=== PATIENT | male | born 1965 | race Caucasian/White ===

== ENCOUNTER 2020-01-01 04:24 | Emergency (ER) | payer OTHER ==
[~2020-01-01] VITALS: Ht 175.3 cm; Wt 83.9 kg
[~2020-01-01 04:24] MED LIST: LORA-259; OLAN5TAB3
--- NOTE | 2020-01-01 05:25 | NUR ---
PT BIBSELF C/O SUICIDAL IDEATION. PT ALSO C/O AUDITORY HALLUCINATIONS, PT STATES THE VOICES ARE TELLING HIM HE'S WORTHLESS. NO PLAN NOTED AND DENIES HI AT THIS TIME. PT AAOX4. CALM AND COOPERATIVE. VITAL SIGNS STABLE. RESPIRATIONS EVEN AND UNLABORED. SKIN INTACT. NO ACUTE DISTRESS NOTED AT THIS TIME. PLACED IN GOWN AND BELONGINGS COLLECTED AND PLACED IN PATIENT LOCKER. SITTER AT BEDSIDE, WILL CONTINUE TO MONITOR
[2020-01-01] MEDS ORDERED: LORAZEPAM 1 MG TABLET PO ONE (05:30)
--- NOTE | 2020-01-01 05:40 | NUR ---
RAMP MANAGER AT BEDSIDE FOR COLLECTION
[2020-01-01] MEDS ORDERED: LORAZEPAM 1 MG TABLET ONE (05:51)
[2020-01-01] MEDS ORDERED: QUETIAPINE FUMARATE 25 MG TABLET ONE (05:55)
[2020-01-01] MEDS ORDERED: QUETIAPINE FUMARATE 100 MG TABLET PO SCH (06:00)
[2020-01-01 06:01] LABS: BASOPHILS # (AUTO) 0.1 /CMM (0.0-0.2); BASOPHILS % (AUTO) 0.6 % (0.0-2.0); EOSINOPHILS % (AUTO) 3.8 % (0.0-6.0); HEMATOCRIT 45 % (39-51); HEMOGLOBIN 15.3 g/dL (13.5-17.5); LYMPHOCYTES # (AUTO) 1.9 /CMM (0.8-4.8); LYMPHOCYTES % (AUTO) 20.1 % (20.0-44.0); MEAN CORPUSCULAR HGB CONC 34 g/dl (31.0-36.0); MEAN CORPUSCULAR VOLUME 90 fL (80-96); MONOCYTES # (AUTO) 1.2 /CMM (0.1-1.30); MONOCYTES % (AUTO) 12.7 % (2.0-12.0); NEUTROPHILS % (AUTO) 62.8 % (43.0-81.0); PLATELET COUNT (AUTO) 284 /CMM (150-450); RED BLOOD CELL COUNT(AUTO) 5.01 MIL/uL (4.5-6.0); WHITE BLOOD COUNT (AUTO) 9.5 K/uL (4.3-11.0)
[2020-01-01 06:24] LABS: CALCIUM, SERUM 9.4 mg/dL (8.5-10.1); CARBON DIOXIDE 25 mmol/L (21-32); CHLORIDE 98 mmol/L (98-107); CREATININE 1.1 mg/dL (0.6-1.3); GLUCOSE 107 mg/dL (74-106); SODIUM SERUM 133 mmol/L (136-145); UREA NITROGEN, BLOOD 13 mg/dL (7-18)
[2020-01-01 06:30] LABS: ALANINE AMINOTRANSFERASE 27 U/L (12-78); ALBUMIN 4.2 g/dL (3.4-5.0); ALCOHOL, BLOOD < 3 mg/dL (0-0); ALKALINE PHOSPHATASE 77 U/L (46-116); ASPARTATE AMINOTRANSFERASE 26 U/L (15-37); BILIRUBIN,DIRECT 0.2 mg/dL (0.0-0.2); BILIRUBIN,TOTAL 0.9 mg/dL (0.2-1.0); TOTAL PROTEIN, SERUM 8.2 g/dL (6.4-8.2)
[2020-01-01 06:31] LABS: ACETAMINOPHEN < 2 ug/ml (10-30)
--- NOTE | 2020-01-01 06:58 | NUR ---
URINE COLLECTED, CALLED LAB FOR NURSE DISCHARGE
[2020-01-01] MEDS ORDERED: LIDOCAINE 2% JEL UROJET 10 ML MM ONE (06:59)
--- NOTE | 2020-01-01 08:00 | NUR ---
PATIENT RESTING, NO DISTRESS NOTED. NEEDS ATTENDED.
[2020-01-01 08:41] LABS: APPEARANCE,URINE CLEAR (CLEAR); BILIRUBIN,URINE NEGATIVE (NEGATIVE); BLOOD, URINE TRACE-INTA Ery/uL (NEGATIVE); COLOR,URINE YELLOW (YELLOW); KETONES,URINE NEGATIVE (NEGATIVE); LEUKOCYTE ESTERASE ,URINE NEGATIVE (NEGATIVE); NITRITE, URINE NEGATIVE (NEGATIVE); PROTEIN,URINE NEGATIVE (NEGATIVE); UGLUCOSE NEGATIVE (NEGATIVE); UROBILINOGEN,URINE 0.2 EU/dL (0.2)
--- NOTE | 2020-01-01 08:46 | NUR ---
ORDERED BREAKFAST FOOD TRAY.
[2020-01-01 09:38] LABS: BACTERIA,URINE None seen /HPF (None Seen); RBC,URINE 0-2 /HPF (0-2); SQUAMOUS EPITHELIAL CELL,UR Rare /HPF (None Seen); WBC,URINE 0-2 /HPF (0-3)
--- NOTE | 2020-01-01 10:07 | NUR ---
KING AT BEDSIDE FOR EVAL.
--- NOTE | 2020-01-01 12:34 | NUR ---
This SW faxed clinicals to [facility] Intake . Pending COVID results.
--- NOTE | 2020-01-01 12:52 | NUR ---
COVID SWAB SENT TO LAB.
--- NOTE | 2020-01-01 13:45 | NUR ---
MEDICAL CLEARANCE NOTE FAXED TO [facility]
--- NOTE | 2020-01-01 15:55 | NUR ---
Dr. Manning, [phone] ext [phone]. Ramila (intake)
--- NOTE | 2020-01-01 16:03 | NUR ---
REPORT GIVEN TO LAQUITA QUINTANILLA FOR ELVIS.
--- NOTE | 2020-01-01 16:51 | NUR ---
CALLED [facility] FOR TRANSPORT TO [facility]. ETA [phone].
[2020-01-01] MEDS ORDERED: ALPR2TAB7 PO (18:26)
[2020-01-01] MEDS ORDERED: HYDR4TAB57 PO (18:26)
[2020-01-01] MEDS ORDERED: GABA-532 PO (18:26)
[2020-01-01] MEDS ORDERED: QUET100T PO (18:26)
[2020-01-01] MEDS ORDERED: HYDROMORPHONE HCL 2 MG TABLET ONE (18:56)
[2020-01-01] MEDS ORDERED: GABAPENTIN 300 MG CAPSULE ONE (18:56)
[2020-01-01] MEDS ORDERED: HYDROMORPHONE HCL 2 MG TABLET PO PRN (19:00)
[2020-01-01] MEDS ORDERED: GABAPENTIN 100 MG CAPSULE PO ONE (19:00)
--- NOTE | 2020-01-01 19:01 | NUR ---
PATIENT GIVEN HIS "SCHEDULED" MEDICATIONS. DILAUDID AND GABAPENTIN. ORDERED FOOD TRAY.
--- NOTE | 2020-01-01 20:18 | NUR ---
[facility] AT BEDSIDE FOR Transport TO [facility].
[2020-01-01 20:19] VITALS: BP 124/81
== END 2020-01-01 20:19 ==
LOC: ER 04:24
DX: R45.851 Suicidal ideations (principal); F31.9 Bipolar disorder, unspecified; G89.29 Other chronic pain; Z91.14 Patient's other noncompliance with medication regimen; F41.9 Anxiety disorder, unspecified; Z88.5 Allergy status to narcotic agent; Z88.0 Allergy status to penicillin; F12.90 Cannabis use, unspecified, uncomplicated; F15.10 Other stimulant abuse, uncomplicated; Z20.828 Contact with and (suspected) exposure to other viral communicable diseases
CPT/HCPCS: 36415; 80048; 80076; 80299; 80307 ×2; 80320; 81001; 85025; 87426; 99285; C9803; J3490; 81000-TC; G0480

== ENCOUNTER 2020-01-15 23:14 | Emergency (ER) | payer MEDICAID, OTHER ==
[~2020-01-15] VITALS: Ht 170.2 cm; Wt 81.6 kg
[~2020-01-15 23:14] MED LIST changes: +ALPR2TAB7 PO; +GABA-532 PO; +HYDR4TAB57 PO; -LORA-259; -OLAN5TAB3; +QUET100T PO
[2020-01-15] MEDS ORDERED: LORAZEPAM 1 MG TABLET ONE (23:28)
[2020-01-15] MEDS ORDERED: OLANZAPINE 10 MG VIAL IM ONE (23:29)
--- NOTE | 2020-01-15 23:30 | NUR ---
PT CAME TO THE ER C/O AUDITORY HALLUCINATIONS TELLING HIM TO "BE CAREFUL". PT DENIES SI/HI. PT AAOX4, VSS, RESPIRATIONS EVEN AND UNLABORED ON RA W/ NAD NOTED. PT CONNECTED TO THE MONITOR AND POX. PT CHANGED INTO GOWN, BELONGINGS PLACED TO MONITOR.SITTER AT BEDSIDE FOR SAFETY
[2020-01-15] MEDS: LORAZEPAM 1 MG TABLET PO ONE (23:35)
[2020-01-15] MEDS: OLANZAPINE 10 MG VIAL IM ONE (23:35)
--- NOTE | 2020-01-15 23:36 | NUR ---
RN CHEMICAL DEPENDENCY AT BEDSIDE FOR BLOOD DRAW
[2020-01-15 23:46] LABS: BASOPHILS # (AUTO) 0.1 /CMM (0.0-0.2); BASOPHILS % (AUTO) 0.7 % (0.0-2.0); EOSINOPHILS % (AUTO) 2.7 % (0.0-6.0); HEMATOCRIT 47 % (39-51); HEMOGLOBIN 15.5 g/dL (13.5-17.5); MEAN CORPUSCULAR HGB CONC 33 g/dl (31.0-36.0); MEAN CORPUSCULAR VOLUME 91 fL (80-96); MONOCYTES # (AUTO) 0.9 /CMM (0.1-1.30); MONOCYTES % (AUTO) 10.5 % (2.0-12.0); NEUTROPHILS # (AUTO) 5.8 /CMM (1.8-8.9); NEUTROPHILS % (AUTO) 64.1 % (43.0-81.0); PLATELET COUNT (AUTO) 292 /CMM (150-450); RED BLOOD CELL COUNT(AUTO) 5.13 MIL/uL (4.5-6.0)
[2020-01-15 23:53] LABS: CALCIUM, SERUM 9.5 mg/dL (8.5-10.1); CARBON DIOXIDE 28 mmol/L (21-32); CHLORIDE 101 mmol/L (98-107); CREATININE 1.2 mg/dL (0.6-1.3); GLUCOSE 106 mg/dL (74-106); POTASSIUM 3.6 mmol/L (3.5-5.1); SODIUM SERUM 137 mmol/L (136-145); UREA NITROGEN, BLOOD 14 mg/dL (7-18)
[2020-01-15 23:59] LABS: ALANINE AMINOTRANSFERASE 29 U/L (12-78); ALBUMIN 4.2 g/dL (3.4-5.0); ALCOHOL, BLOOD < 3 mg/dL (0-0); ALKALINE PHOSPHATASE 79 U/L (46-116); ASPARTATE AMINOTRANSFERASE 30 U/L (15-37); BILIRUBIN,DIRECT 0.2 mg/dL (0.0-0.2); BILIRUBIN,TOTAL 0.6 mg/dL (0.2-1.0); TOTAL PROTEIN, SERUM 8.2 g/dL (6.4-8.2)
[2020-01-16] LABS: ACETAMINOPHEN < 10 ug/ml (10-30)
--- NOTE | 2020-01-16 00:54 | NUR ---
Patient is resting comfortably in bed with eyes closed. Easily aroused. VSS
--- NOTE | 2020-01-16 01:47 | NUR ---
PATIENT CURRENTLY URINATING IN URINAL. URINE COLLECTED AND SENT TO THE LAB.
[2020-01-16 02:10] LABS: BILIRUBIN,URINE NEGATIVE (NEGATIVE); BLOOD, URINE NEGATIVE Ery/uL (NEGATIVE); COLOR,URINE YELLOW (YELLOW); LEUKOCYTE ESTERASE ,URINE NEGATIVE (NEGATIVE); NITRITE, URINE NEGATIVE (NEGATIVE); PROTEIN,URINE NEGATIVE (NEGATIVE); UGLUCOSE NEGATIVE (NEGATIVE); UROBILINOGEN,URINE 0.2 EU/dL (0.2)
--- NOTE | 2020-01-16 02:34 | NUR ---
PT RESTING COMFORTABLY IN BED. NO ACUTE DISTRESS NOTED. VSS
[2020-01-16 05:33] VITALS: BP 132/79
== END 2020-01-16 05:34 | disposition home or self-care (01) ==
LOC: ER 23:17
DX: F29 Unspecified psychosis not due to a substance or known physiological condition (principal); F19.10 Other psychoactive substance abuse, uncomplicated; F20.9 Schizophrenia, unspecified; F41.9 Anxiety disorder, unspecified; F31.9 Bipolar disorder, unspecified; Z88.0 Allergy status to penicillin; Z88.5 Allergy status to narcotic agent; Z79.899 Other long term (current) drug therapy
CPT/HCPCS: 36415; 80048; 80076; 80299; 80307; 80320; 81001; 85025; 96372; 99284; J3490; 81000-TC; G0480

== ENCOUNTER 2020-01-31 02:39 | Emergency (ER) | payer MEDICAID ==
[~2020-01-31] VITALS: Ht 172.7 cm; Wt 81.6 kg
--- NOTE | 2020-01-31 02:48 | NUR ---
PT AAOX4. BIBRA 860 FROM [facility] FOR C/O BED BUGS IN HIS BED. PT APPEARS TO BE VERY ANXIOUS. VSS. NO ACUTE DISTRESS NOTED.
[2020-01-31] MEDS ORDERED: diphenhydrAMINE HCL 50 MG CAPSULE ONE (03:27)
[2020-01-31] MEDS: diphenhydrAMINE HCL 50 MG CAPSULE PO ONE (03:32)
[2020-01-31 06:17] VITALS: BP 122/76
--- NOTE | 2020-01-31 06:17 | NUR ---
Patient discharged to home in stable condition. Written and verbal after care instructions given. Patient verbalizes understanding of instruction and rx. Pt ambulated with steady gait. vss.
== END 2020-01-31 06:18 | disposition home or self-care (01) ==
LOC: ER 02:40
DX: T14.8XXA Other injury of unspecified body region, initial encounter (principal); Z88.0 Allergy status to penicillin; Z88.5 Allergy status to narcotic agent; Z79.899 Other long term (current) drug therapy; W57.XXXA Bitten or stung by nonvenomous insect and other nonvenomous arthropods, initial encounter; Y93.89 Activity, other specified; Y92.89 Other specified places as the place of occurrence of the external cause; Y99.8 Other external cause status
CPT/HCPCS: 99283; Q0163

== ENCOUNTER 2020-02-08 00:34 | Inpatient (IN) | payer MEDICAID ==
[~2020-02-08] VITALS: Ht 175.3 cm; Wt 74.8 kg
--- NOTE | 2020-02-08 00:40 | NUR ---
PT AAOX4. BIB EMS C/O SI SMOKED SPEED @ 2000 AND TOOK 8 PILLS OF SUBUTEX 45MIN ACADEMIC AFFAIRS SPECIALIST. PT PLACED IN BED 14 ON DEVELOPMENT SCIENTIST AND PULSE OX. PT NOTED TACHY AT 124, RR EVEN AND UNLABORED, BP STABLE. PT PLACED IN A GOWN, BELONINGS PLACED IN LOCKER, SITTER AT BEDSIDE. AWAITING MD FOR EVAL AND ORDERS. WILL CONTINUE TO MONITOR.
--- NOTE | 2020-02-08 00:45 | NUR ---
AT BEDSIDE FOR EVAL. LINE ESTABLISHED LH 20G, BLOOD DRAWN, SENT TO LAB.
--- NOTE | 2020-02-08 00:52 | NUR ---
SPOKE WITH MARCIA FROM POISON CONTROL. RECOMMENDATIONS: 50G CHARCOAL IF PT IS AWAKE AND ABLE TO TOLERATE NARCAN 2MG FOR RESP DEPRESSION BENZO FOR AGITATION, TWITCHING, SEIZURES MONITOR FOR: SEIZURE, HYPOTENSION, BRADYCARDIA, PROLONG QT OBSERVE PATIENT FOR [address] VILLARREAL MADE AWARE
--- NOTE | 2020-02-08 00:53 | NUR ---
SEIZURE PRECAUTIONS INITIATED
[2020-02-08] MEDS ORDERED: ONDANSETRON HCL/PF 4 MG/2 ML VIAL ONE (00:59)
[2020-02-08] MEDS ORDERED: LIDOCAINE 2% JEL UROJET 10 ML MM ONE ×4 (00:59→06:30)
[2020-02-08] MEDS ORDERED: ONDANSETRON HCL/PF 4 MG/2 ML VIAL IV ONE (01:00)
[2020-02-08 01:01] LABS: BASOPHILS # (AUTO) 0.1 /CMM (0.0-0.2); BASOPHILS % (AUTO) 0.4 % (0.0-2.0); EOSINOPHILS % (AUTO) 0.6 % (0.0-6.0); HEMATOCRIT 44 % (39-51); HEMOGLOBIN 14.6 g/dL (13.5-17.5); LYMPHOCYTES # (AUTO) 1.7 /CMM (0.8-4.8); LYMPHOCYTES % (AUTO) 12.6 % (20.0-44.0); MEAN CORPUSCULAR HGB CONC 33 g/dl (31.0-36.0); MEAN CORPUSCULAR VOLUME 92 fL (80-96); MONOCYTES # (AUTO) 0.8 /CMM (0.1-1.30); MONOCYTES % (AUTO) 5.9 % (2.0-12.0); NEUTROPHILS # (AUTO) 10.9 /CMM (1.8-8.9); NEUTROPHILS % (AUTO) 80.5 % (43.0-81.0); PLATELET COUNT (AUTO) 323 /CMM (150-450); WHITE BLOOD COUNT (AUTO) 13.6 K/uL (4.3-11.0)
[2020-02-08 01:11] LABS: CALCIUM, SERUM 9.7 mg/dL (8.5-10.1); CARBON DIOXIDE 26 mmol/L (21-32); CHLORIDE 102 mmol/L (98-107); CREATININE 1.6 mg/dL (0.6-1.3); GLUCOSE 112 mg/dL (74-106); POTASSIUM 3.4 mmol/L (3.5-5.1); SODIUM SERUM 140 mmol/L (136-145); UREA NITROGEN, BLOOD 17 mg/dL (7-18)
--- NOTE | 2020-02-08 01:16 | NUR ---
PT REQUESTING CARMEN GARCIA MD AWARE.
--- NOTE | 2020-02-08 01:16 | NUR ---
AWAITING LAB FOR COVID SWAB.
--- NOTE | 2020-02-08 01:25 | NUR ---
LEANAID SWABBED, SENT TO LAB.
[2020-02-08 01:27] LABS: ALANINE AMINOTRANSFERASE 20 U/L (12-78); ALBUMIN 4.5 g/dL (3.4-5.0); ALCOHOL, BLOOD < 3 mg/dL (0-0); ALKALINE PHOSPHATASE 73 U/L (46-116); ASPARTATE AMINOTRANSFERASE 26 U/L (15-37); BILIRUBIN,DIRECT 0.1 mg/dL (0.0-0.2); BILIRUBIN,TOTAL 0.3 mg/dL (0.2-1.0); TOTAL PROTEIN, SERUM 8.5 g/dL (6.4-8.2)
[2020-02-08 01:28] LABS: ACETAMINOPHEN < 10 ug/ml (10-30)
[2020-02-08] MEDS ORDERED: IV NS 0.9% 1,000 ML BAG IV ONE (01:30)
--- NOTE | 2020-02-08 01:31 | NUR ---
URINE COLLECTED, SENT TO LAB.
[2020-02-08 01:34] LABS: BILIRUBIN,URINE SMALL (NEGATIVE); BLOOD, URINE Negative Ery/uL (NEGATIVE); COLOR,URINE YELLOW (YELLOW); LEUKOCYTE ESTERASE ,URINE Negative (NEGATIVE); NITRITE, URINE Negative (NEGATIVE); PROTEIN,URINE 30 mg/dl (NEGATIVE); UGLUCOSE Negative (NEGATIVE); UROBILINOGEN,URINE 0.2 EU/dL (0.2)
[2020-02-08 01:45] LABS: RBC,URINE 0-2 /HPF (0-2); WBC,URINE 0-2 /HPF (0-3)
--- NOTE | 2020-02-08 01:45 | NUR ---
ER SPOKE TO [facility] REGARDING PT ADMISSION.
[2020-02-08 01:46] LABS: BACTERIA,URINE None seen /HPF (None Seen); MUCUS,URINE Few /LPF (None Seen); SQUAMOUS EPITHELIAL CELL,UR Few /HPF (None Seen); URINE AMORPHOUS URATE Few /HPF (None Seen)
[2020-02-08] MEDS ORDERED: ACETAMINOPHEN 650 MG/SUPP.RECT RC PRN (02:00)
[2020-02-08] MEDS ORDERED: HYDROCODONE/APAP 5/325MG TABLET PO PRN (02:00)
[2020-02-08] MEDS ORDERED: IV NS 0.9% 1,000 ML IV PRN (02:00)
[2020-02-08] MEDS ORDERED: Z GUARD REMEDY 2 OZ OINT TP PRN (02:00)
[2020-02-08] MEDS ORDERED: ZOLPIDEM TARTRATE 5 MG TABLET PO PRN (02:00)
[2020-02-08] MEDS ORDERED: ONDANSETRON HCL/PF 4 MG/2 ML VIAL IVP PRN (02:00)
--- NOTE | 2020-02-08 02:05 | NUR ---
REC'D NEG COVID RESULTS. AWARE. CALLED NURSING SUP FOR BED
--- NOTE | 2020-02-08 02:17 | NUR ---
BIRD BED: 116-1
--- NOTE | 2020-02-08 02:22 | NUR ---
CALLED FOR REPORT, NURSE WILL CALL BACK.
--- NOTE | 2020-02-08 02:29 | NUR ---
REPORT GIVEN TO VARUN QUINTANILLA FOR ELVIS
--- NOTE | 2020-02-08 02:59 | NUR ---
PT TRANSFERED PER ACLS PROTOCOL. VSS.
--- NOTE | 2020-02-08 03:00 | NUR ---
RN NOTE RECEIVED PT FROM ER ACCOMPANIED BY EMT AND MANAGER DEVELOPMENTAL. PT ABLE TO WALK FROM GURNEY TO BED WITH STANDBY ASSIST. PT ON ROOM AIR, DENIES PAIN OR DISCOMFORT, ALERT AND ORIENTED X 4. IV ON LEFT HAND 20G IV FLUSHED AND PATENT. PLACED PT ON TAXATION ACCOUNTANT SHOWING SINUS TACHYCARDIA. PT REFUSED TO HAVE FULL SKIN ASSESSMENT BUT STATES THAT HE DOES NOT HAVE ANY WOUNDS OR SKIN CONDITIONS. VITAL SIGNS TAKEN. PT STATES WANTING TO KILL HIMSELF BUT DOES NOT HAVE A PLAN AT THIS TIME. SAFETY MEASURES IN PLACE, SEIZURE PRECAUTIONS IN AFFECT, WILL MONITOR PATIENT CLOSELY FOR SAFETY. PATIENT RELATIONS MANAGERDWIGHT VELASQUEZ.
--- NOTE | 2020-02-08 03:10 | NUR ---
RN NOTE MATERIAL WORKER VARSHA WITH ORDER FOR 1:1 SITTER. NOTIFIED BY NOTE TELLER THAT SITTER IS NOT AVAILABLE AT THIS TIME. CONTINUING EDUCATION DIRECTOR GINGER VELASQUEZ.
--- NOTE | 2020-02-08 03:49 | NUR ---
RN NOTE VARSHA SHOP STEWARD WITH ORDER TO ADMINISTER ATIVAN 1MG IV X 1 AND FOR PSYCH CONSULT IN AM, ORDER NOTED AND CARRIED OUT.
--- NOTE | 2020-02-08 03:54 | NUR ---
RN NOTE PT REFUSING FLU VACCINE. EXPLAINED RISKS VS ADVANTAGES BUT CONTINUES TO REFUSE.
[2020-02-08 04:00] VITALS: BP 151/98
[2020-02-08] MEDS ORDERED: LORAZEPAM INJ 2 MG/ML VIAL IV PRN (04:00)
--- NOTE | 2020-02-08 05:45 | NUR ---
0597 PATIENT COMPLAIN OF NOT BEING ABLE TO URINATE. ASSISTED TO BATHROOM BUT STILL UNABLE TO VOID. C/O FEELING FULL IN HIS BLADDER. BLADDER SCAN DONE AND NOTED 991ML OF URINE. INVESTIGATIVE SHOPPER KE MADE AWARE WITH ORDER TO INSERT MORALES CATHETER FOR URINARY RETENTION, CLAMP MORALES IF URINE 500ML, THEN UNCLAMP AFTER 15 MINUTES. ORDER NOTED AND CARRIED OUT.
--- NOTE | 2020-02-08 06:20 | NUR ---
RN NOTE PT REMOVED PADDED SIDE RAILS STATING THAT IT IS MAKING HIM FEEL CLAUSTROPHOBIC. REFUSED TO HAVE SIDE RAILS REPADDED DESPITE EXPLANATION OF RISKS AND BENEFITS.
--- NOTE | 2020-02-08 07:25 | NUR ---
RN NOTE PT IS AWAKE AND ALERT/ORIENTED X 4. PT IN BED ON ROOM AIR, 1;1 SITTER AT BEDSIDE AT THIS TIME, WITH MILD AGITATION AND ANXIETY, IV ON LEFT ARM WITH NS @120ML/HOUR RUNNING ORDERED, IV SITE PATENT AND WITHOUT COMPLICATIONS NOTED AT SITE, SR/ST ON THE PAPERBOARD BOXES ESTIMATOR. REFUSED TO HAVE PADDED SIDE RAILS, CALL LIGHT WITHIN REACH, SAFETY MEASURES IN PLACE, BED ALARM ON, BED LOCKED AND IN LOWEST POSITION, SIDE RAILS UP X 3, PENDING PSYCH EVALUATION. GPS NOTIFIED. ENDORSED TO MORNING RN FOR ELVIS.
--- NOTE | 2020-02-08 07:30 | NUR ---
RN OPENING NOTE PT IS AWAKE LYING IN BED A/Ox4. PT ON ROOM AIR SPO2 97%. PT HAS A 1;1 SITTER AT BEDSIDE CURRENTLY. PT IS DISPLAYING AGITATION AND ANXIETY AT THE MOMENT, WILL CONTACT PROVIDER FOR MEDICATION ORDER. LT ARM IV RUNNING NS @120 ML/HR, PATENT AND INFUSING WELL. PT TELEMONITOR SHOWING SR/ST.PT SAFETY PRECAUTIONS IN PLACE- BED LOCKED AND IN LOWEST POSITION, SR UP x3, CALL LIGHT WITHIN REACH. WILL CONTINUE TO MONITOR.
[2020-02-08 08:00] VITALS: BP 136/88
[2020-02-08] MEDS ORDERED: LORAZEPAM INJ 2 MG/ML VIAL IV ONE (08:30)
--- NOTE | 2020-02-08 09:05 | NUR ---
RN NOTES SPOKE WITH DR. OCAMPO, PER HIM TO CALL CRISIS TEAM FOR EVALUATION.
[2020-02-08] MEDS ORDERED: POTASSIUM CHLORIDE 10 MEQ TABLET.SA PO ONE (11:00)
[2020-02-08] MEDS ORDERED: MAG HYDROX/AL HYDROX/SIMETH 30 ML UDC PO PRN (11:30)
[2020-02-08 12:00] VITALS: BP 119/80
--- NOTE | 2020-02-08 12:18 | NUR ---
RN NOTES CRISIS TEAM AT BEDSIDE, SPOKE WITH PSYCH DOCTOR DR. CLEMONS, AGREED WITH PSYCHIATRIC HOSPITALIZATION ONCE MEDICALLY CLEARED DIVYA JACKSON [employer] RN ALREADY NOTIFIED AND WILL PUT IN HER NOTES. PER HER, PT IS MEDICALLY CLEARED
--- NOTE | 2020-02-08 13:59 | NUR ---
ALMA notified by BIRDShannan Layne RN that the pt. is medically cleared for psychiatric treatment and D/C note is ready. Per Admin Dir, Shayne (see note) the pt. is agreeable to voluntary psychiatric treatment. ALMA followed up and ALMA called Jania at [facility] TEL: [phone] and informed her regarding referral to [facility]. Jania request clinicals. ALMA faxed clinicals to ATTN: Jania at [facility] TEL: [phone] FAX:[phone] for referral to [facility] [[address] [address]; [phone]]. Jania to inform ALMA if pt. si admitted. ALMA will be available as needed.
[2020-02-08] MEDS ORDERED: PANTOPRAZOLE 40 MG TABLET.DR PO ONE (14:30)
--- NOTE | 2020-02-08 14:40 | NUR ---
ALMA was called by Jania from [facility] that the pt. has insurance from [facility]. Jania to keep ALMA updated. ALMA faxed clinicals to [facility] [[address] [place] [address]; ] intake TEL: [phone] FAX: [phone] and text Gera to inform him of referral. ALMA will follow up as needed.
[2020-02-08 16:00] VITALS: BP 141/94
--- NOTE | 2020-02-08 16:09 | NUR ---
This SW followed up with Gera at [facility], , to follow-up on status of patient's referral. Gera informed this SW that patient has been admitted to [facility] [[address] [place] [address]]. Admitting psychiatrist at [facility] will be Dr. Burns; patient will be admitted to Room 215, bed B. Gera stated that [facility] nurse can contact [phone] and provide report to nursing supervisor roving. SW spoke with nurse Gonzalo, x [phone], and informed him of discharge plan and location. Gonzalo to call [phone] to provide nurse to nurse report, after which Gonzalo will arrange for ambulance to transfer patient. PLAN: Patient to be transferred to [facility] [[address] [place] [address]] by ambulance.
--- NOTE | 2020-02-08 16:56 | NUR ---
Crystalizer Tender provided patient with the homeless resource packet, which includes the following resources: a list of year round shelters [place] [facility] [place] [address], ; [facility] [place] [address] [facility] [facility], ; and [place] [facility] [address] [facility] [address] [facility], [phone], along with resources for places to go for food, showers, substance abuse treatment, mental health services, community medical clinics, and pharmacies. These include the following: the [facility] homeless directory which provides a list of places that individuals can go to throughout the week for hot meals, sack lunches, food pantries, and showers; a list of mental health clinics: [facility] [address] [place] [address], ; [facility] [address] [place] [address], ; [facility] [address] [place] [address], ; a list of medical clinics: [facility] [address], [place]. [place], ; [facility] [address] [facility], [facility] [address] [place] [address]; [facility] [address] [place] [address], ; and a list of substance abuse programs: [facility] Substance Abuse Self-helpline ; [facility] ; [facility] ; [facility] ; [facility] ; [facility] [phone]; [facility] [phone]; locations of pharmacies. Patient signed the homeless patient waiver, which was then filed in patient's chart.
--- NOTE | 2020-02-08 17:07 | NUR ---
RN NOTE PT TO BE DISCHARGED AND TRANSFERRED VIA AMBULANCE TO [facility] AT 2030. REPORT GIVEN TO DWIGHT BRITO AT FACILITY FOR CONTINUITY OF CARE. PROVIDED DISCHARGE INSTRUCTIONS, HEALTH TEACHINGS AND MED RECON LIST. TO BE FOLLOWED UP BY PCP AND PSYCH DR PER FACILITY PROTOCOL. WILL ENDORSE CARE TO ASSISTANT PASTRY CHEF NURSE TO REMOVE MORALES CATH AND IV ACCESS. ALL BELONGINGS CHECKED AND RETURNED. ALL PAPER WORKS PREPARED AND SIGNED BY PATIENT.
--- NOTE | 2020-02-08 19:35 | NUR ---
RN OPENING NOTES RECEIVED PT IN BED. AWAITING DISCHARGE. PT IS A/O X 4. NO S/S OF RESP DISTRESS OR SOB NOTED AT THIS TIME. NO DIFFICULTY BREATHING. PT DENIES ANY SUICIDAL IDEATIONS, VERBALIZES NO HARM TO SELF OR OTHERS. PT VERBALIZES FEELING SAFE AT THIS FACILITY. PT DOES VERBALIZE HEARING VOICES, DENIES VOICES TELLING HIM TO HARM SELF OR OTHERS. IV REMOVED PRIOR TO MY SHIFT. NO S/S OF INFILTRATION NOTED. PT HAS UNSTEADY GAIT. PT IS AWARE OF TRANSFER TO [facility] FOR CONTINUATION OF CARE. COMPLIANT. BED IS LOCKED IN LOWEST POSITION WITH BED ALARM ON. CALL LIGHT WITHIN REACH. WILL CONTINUE TO MONITOR.
--- NOTE | 2020-02-08 19:36 | NUR ---
RN CLOSING NOTE PT IN STABLE CONDITION. NSR 90s, YASMEEN IV TAKEN OUT, NO BLEEDING. MORALES CATH TAKEN OUT WITH NO PROBLEMS. PT TO BE TRANSFERRED TO [facility] AT 2030. PT SAFETY PRECAUTIONS IN PLACE- BED LOCKED AND IN LOWEST POSITION, SR UPx3, BED ALARM ON, CALL LIGHT WITHIN REACH. WILL ENDORSE ELVIS TO ONCOMING NURSE.
[2020-02-08 20:00] VITALS: BP 126/80
--- NOTE | 2020-02-08 20:05 | NUR ---
PT COMPLAINS OF ANXIETY, REQUESTS ATIVAN. INFORMED FULLER BRUSH WORKER MD. RECEIVED ORDER FOR PO ATIVAN 1MG.
[2020-02-08] MEDS ORDERED: LORAZEPAM 1 MG TABLET ONE (20:14)
--- NOTE | 2020-02-08 20:16 | NUR ---
ATIVAN TABLET DROPPED AND BROKEN. NOTIFIED CHARGE AND PHARMACY. MED WASTED WITH CHARGE. ORDER FOR REPLACEMENT OF ATIVAN TABLET MADE AND ADMINISTERED.
[2020-02-08] MEDS ORDERED: LORAZEPAM 1 MG TABLET PO ONE ×2 (20:30)
--- NOTE | 2020-02-08 20:30 | NUR ---
PT DISCHARGED. REPORT GIVEN TO MARY, FROM AM [facility]. UPON ARRIVAL EMT ASKED FOR PT BY NAME, TO TRANSFER TO [facility] ARRANGED. ID BAND REMOVED. NO IV PRESENT. NO F/C PRESENT. PT HANDED OFF IN STABLE CONDITION. BELONGINGS SENT WITH PATIENT ON GURSULLIVAN WITH 3 EMT ESCORTS. LAST VITAL SIGNS WNL TO PT BASELINE, FOLLOWS T 98.9 HR 93 RR 18O2 SAT 96% BP 126/80.
== END 2020-02-08 21:43 | DRG 817 ==
LOC: ER 00:37 → TELE-TD 02:19 → MEDSG1 12:31
PROVIDERS: ADMIT Nurse Practitioner Acute Care; ATTEND Nurse Practitioner Acute Care
DX: T40.5X2A Poisoning by cocaine, intentional self-harm, initial encounter (principal); F31.9 Bipolar disorder, unspecified; Z88.0 Allergy status to penicillin; E87.6 Hypokalemia; D72.829 Elevated white blood cell count, unspecified; F17.210 Nicotine dependence, cigarettes, uncomplicated; G40.909 Epilepsy, unspecified, not intractable, without status epilepticus; G92 Toxic encephalopathy; N17.0 Acute kidney failure with tubular necrosis; F19.188 Other psychoactive substance abuse with other psychoactive substance-induced disorder; Z91.5 Personal history of self-harm; T40.7X2A Poisoning by cannabis (derivatives), intentional self-harm, initial encounter; T43.622A Poisoning by amphetamines, intentional self-harm, initial encounter; F41.9 Anxiety disorder, unspecified; Y92.89 Other specified places as the place of occurrence of the external cause
CPT/HCPCS: 36415; 80048-TC; 80076-TC; 81001; 85025-TC; 87081-TC; C9803; G0378; G0480; J2060; J2405; J3490; J7030

== ENCOUNTER 2021-01-06 09:45 | Emergency (ER) | payer MEDICAID, OTHER ==
[~2021-01-06] VITALS: Ht 177.8 cm; Wt 74.8 kg
[2021-01-06 10:00] VITALS: BP 135/81
[2021-01-06 10:18] LABS: BASOPHILS # (AUTO) 0.1 K/uL (0.0-0.2); BASOPHILS % (AUTO) 0.9 % (0.0-2.0); EOSINOPHILS % (AUTO) 6.8 % (0.0-6.0); HEMATOCRIT 46 % (39-51); HEMOGLOBIN 15.4 g/dL (13.5-17.5); LYMPHOCYTES # (AUTO) 1.6 K/uL (0.8-4.8); LYMPHOCYTES % (AUTO) 24.3 % (20.0-44.0); MEAN CORPUSCULAR HGB CONC 34 g/dl (31.0-36.0); MEAN CORPUSCULAR VOLUME 90 fL (80-96); MONOCYTES # (AUTO) 0.6 K/uL (0.1-1.30); MONOCYTES % (AUTO) 8.8 % (2.0-12.0); NEUTROPHILS # (AUTO) 3.8 K/uL (1.8-8.9); NEUTROPHILS % (AUTO) 59.2 % (43.0-81.0); PLATELET COUNT (AUTO) 280 K/uL (150-450); RED BLOOD CELL COUNT(AUTO) 5.09 MIL/uL (4.5-6.0); WHITE BLOOD COUNT (AUTO) 6.4 K/uL (4.3-11.0)
[2021-01-06] MEDS ORDERED: ASPI-1169 PO (10:20)
[2021-01-06] MEDS ORDERED: TEMA15CA PO (10:20)
[2021-01-06] MEDS ORDERED: ATOR40TA PO (10:20)
[2021-01-06] MEDS ORDERED: IBUP-1955 PO (10:20)
[2021-01-06] MEDS ORDERED: PANT40TA2 PO (10:20)
[2021-01-06] MEDS ORDERED: HYDR-4303 PO (10:20)
[2021-01-06] MEDS ORDERED: TAMS-12 PO (10:20)
[2021-01-06] MEDS ORDERED: LACT-246 PO (10:21)
[2021-01-06 10:22] LABS: CALCIUM, SERUM 9.1 mg/dL (8.5-10.1); CARBON DIOXIDE 31 mmol/L (21-32); CHLORIDE 101 mmol/L (98-107); CREATININE 1.1 mg/dL (0.6-1.3); GLUCOSE 107 mg/dL (74-106); POTASSIUM 4.7 mmol/L (3.5-5.1); SODIUM SERUM 136 mmol/L (136-145); UREA NITROGEN, BLOOD 13 mg/dL (7-18)
[2021-01-06] MEDS ORDERED: LORAZEPAM 1 MG TABLET ONE (10:57)
--- NOTE | 2021-01-06 10:58 | NUR ---
CALLED [facility] IB REGARDS OF TRANSPORTING THE PT BACK TO THEIR FACILITY AND THEY WILL GIVE US A CALL BACK REGARDING PT BED NUMBER.
[2021-01-06] MEDS ORDERED: LORAZEPAM 1 MG TABLET PO ONE (11:00)
--- NOTE | 2021-01-06 12:03 | NUR ---
report given to Adam QUINTANILLA for robert.
--- NOTE | 2021-01-06 12:07 | NUR ---
CALLED [facility] AND HAVE AN ETA 1300
--- NOTE | 2021-01-06 12:49 | NUR ---
Note lisa in EDM - 01/06/21 at 1249 by DIONNE Patient discharged to home in stable condition. Written and verbal after care instructions given. Patient verbalizes understanding of instruction.IV removed. Catheter intact and site benign. Pressure and 4x4 applied to site. No bleeding noted.
--- NOTE | 2021-01-06 12:49 | NUR ---
patient picked up by private ambulance going back to [facility] in no distress.
== END 2021-01-06 12:49 ==
LOC: ER 09:50
DX: F19.10 Other psychoactive substance abuse, uncomplicated (principal); R07.89 Other chest pain; F41.9 Anxiety disorder, unspecified; F17.200 Nicotine dependence, unspecified, uncomplicated; Z98.890 Other specified postprocedural states; Z88.0 Allergy status to penicillin; Z88.8 Allergy status to other drugs, medicaments and biological substances; Z88.6 Allergy status to analgesic agent; Z79.899 Other long term (current) drug therapy; Z79.82 Long term (current) use of aspirin
CPT/HCPCS: 36415; 71045-TC; 80048-TC; 84484-TC; 85025-TC